=== PATIENT | female | born 1995 | race Caucasian/White ===

== ENCOUNTER 2019-04-18 08:29 | Outpatient (CLI) | payer OTHER ==
[~2019-04-18 08:29] MED LIST: AMOXIL875 MG; SYNTHROID175 MCG
== END 2019-04-18 09:39 | disposition home or self-care (01) ==
LOC: SONOGRAMA 08:29
DX: R22.2 Localized swelling, mass and lump, trunk (principal)

== ENCOUNTER 2019-09-01 03:22 | Emergency (ER) | payer OTHER ==
[~2019-09-01] VITALS: Ht 170.2 cm; Wt 72.6 kg
[2019-09-01] MEDS ORDERED: SYNTHROID200 MCG PO (03:54)
[2019-09-01] MEDS ORDERED: LILLOW-28 TABL1 EACH (03:55)
[2019-09-01] MEDS ORDERED: KETO10TA2 PO (09:05)
[2019-09-01] MEDS ORDERED: DUI500 PO (09:05)
== END 2019-09-01 13:06 | disposition home or self-care (01) ==
LOC: ER 03:22
DX: T74.11XA Adult physical abuse, confirmed, initial encounter (principal); S01.521A Laceration with foreign body of lip, initial encounter; S00.83XA Contusion of other part of head, initial encounter; S40.022A Contusion of left upper arm, initial encounter; Y04.2XXA Assault by strike against or bumped into by another person, initial encounter; Y93.89 Activity, other specified; Y92.038 Other place in apartment as the place of occurrence of the external cause; Y99.8 Other external cause status